=== PATIENT | female | born 1940 | race Two or more races ===

== ENCOUNTER 2017-08-28 16:26 | Emergency (ER) | payer MEDICARE, MEDICAID ==
[~2017-08-28] VITALS: Ht 154.9 cm; Wt 59.0 kg
[2017-08-28] MEDS ORDERED: KLONOPIN0.5 MG ORAL (16:35)
[2017-08-28] MEDS ORDERED: FIORICET1 EA ORAL (16:35)
[2017-08-28] MEDS ORDERED: GABAPENTIN100 MG ORAL (16:35)
[2017-08-28] MEDS ORDERED: SENNA8.6 M2 PO (16:35)
[2017-08-28] MEDS ORDERED: REMERON30 MG ORAL (16:35)
[2017-08-28] MEDS ORDERED: DEPAKOTE ER500 MG ORAL (16:35)
[2017-08-28] MEDS ORDERED: ASPIR 8181 MG ORAL (16:35)
[2017-08-28] MEDS ORDERED: TEMAZEPAM30 MG ORAL (16:35)
[2017-08-28] MEDS ORDERED: DILANTIN100 MG ORAL (16:35)
[2017-08-28] MEDS ORDERED: NITROGLYCERIN0.4 MG SL (16:35)
[2017-08-28] MEDS ORDERED: SYNTHROID125 MCG ORAL (16:35)
[2017-08-28 16:56] LABS: BASOPHILS % (AUTO) 1.7 % (0.0-2.0); EOSINOPHILS % (AUTO) 0.5 % (0.0-3.0); HEMATOCRIT 47.6 % (37.0-47.0); HEMOGLOBIN 15.7 G/DL (12.0-16.0); LYMPHOCYTES % (AUTO) 28.1 % (20.0-45.0); MEAN CORPUSCULAR VOLUME 96 FL (80-99); MONOCYTES % (AUTO) 6.6 % (1.0-10.0); NEUTROPHILS % (AUTO) 63.1 % (45.0-75.0); PLATELET COUNT 190 K/UL (150-450); RED BLOOD COUNT 4.95 M/UL (4.20-5.40); RED CELL DISTRIBUTION WIDTH 13.1 % (11.6-14.8); WHITE BLOOD COUNT 6.5 K/UL (4.8-10.8)
[2017-08-28 17:07] LABS: ANION GAP 6 mmol/L (5-15); BLOOD UREA NITROGEN 15 mg/dL (7-18); CALCIUM 8.7 MG/DL (8.5-10.1); CARBON DIOXIDE 32 MMOL/L (21-32); CHLORIDE 105 MMOL/L (98-107); CREATININE 0.8 MG/DL (0.55-1.30); POTASSIUM 4.1 MMOL/L (3.5-5.1); SODIUM 143 MMOL/L (136-145)
[2017-08-28 17:30] LABS: ALANINE AMINOTRANSFERASE 19 U/L (12-78); ALBUMIN 3.7 G/DL (3.4-5.0); ALBUMIN/GLOBULIN RATIO 1.2 (1.0-2.7); ALKALINE PHOSPHATASE 132 U/L (46-116); ASPARTATE AMINO TRANSFERASE 13 U/L (15-37); BILIRUBIN,TOTAL 0.2 MG/DL (0.2-1.0); CKMB 1.8 NG/ML (0.0-3.6); CREATINE KINASE 66 U/L (26-308)
[2017-08-28] MEDS ORDERED: BACITRACIN15 GM TOPIC (17:47)
[2017-08-28] MEDS ORDERED: KEFLEX500 MG ORAL (17:47)
[2017-08-28] MEDS ORDERED: ACETAMINOPHEN-1 EAC1 ORAL (17:47)
[2017-08-28 18:20] VITALS: BP 140/64
--- NOTE | 2017-08-28 23:03 | Emergency Room Report ---
History of Present Illness General Chief Complaint: Chest Pain Source: Patient Present Illness HPI 77-year-old female presents to ED for evaluation. Patient brought in by EMS complaining of chest pain. Midsternal, sharp, 7/10 nonradiating. Times one week. Patient also notes rash to her chest times one week. Denies any shortness of breath. Denies any fevers chills or cough. No other aggravating relieving factors. Denies any other associated symptoms Allergies: Coded Allergies: No Known Allergies (Unverified , 08/28/17) Patient History Past Medical History: seizures Past Surgical History: none Pertinent Family History: none Social History: Denies: smoking, alcohol use, drug use Last Menstrual Period: Post Now: No Immunizations: UTD Reviewed Nursing Documentation: PMH: Agreed, PSxH: Agreed Nursing Documentation-PMH Hx Seizures: Yes Review of Systems All Other Systems: negative except mentioned in HPI Physical Exam Vital Signs Date Time Temp Pulse Resp B/P (MAP) Pulse Ox O2 Delivery O2 Flow Rate FiO2 08/28/17 16:23 76 16 142/64 98 Room Air Sp02 EP Interpretation: reviewed, normal General Appearance: no apparent distress, alert, GCS 15, non-toxic Head: normocephalic, atraumatic Eyes: bilateral eye normal inspection, bilateral eye PERRL ENT: hearing grossly normal, normal pharynx, no angioedema, normal voice Neck: full range of motion, supple/symm/no masses Respiratory: lungs clear, normal breath sounds, speaking full sentences Cardiovascular #1: regular rate, rhythm, no edema Cardiovascular #2: 2+ carotid (R), 2+ carotid (L), 2+ radial (R), 2+ radial (L) , 2+ dorsalis pedis (R), 2+ dorsalis pedis (L) Gastrointestinal: normal bowel sounds, non tender, soft, non-distended, no guarding, no rebound Rectal: deferred Genitourinary: normal inspection, no CVA tenderness Musculoskeletal: back normal, gait/station normal, normal range of motion, non- tender Neurologic: alert, oriented x3, responsive, motor strength/tone normal, sensory intact, speech normal Psychiatric: judgement/insight normal, memory normal, mood/affect normal, no suicidal/homicidal ideation Reflexes: 3+ bicep (R), 3+ bicep (L), 3+ tricep (R), 3+ tricep (L), 3+ knee (R) , 3+ knee (L) Skin: normal color, warm/dry, well hydrated, rash - 2x2cm rash to sternal region. erythematous Lymphatic: no adenopathy Medical Decision Making Diagnostic Impression: Primary Impression: Rash Additional Impression: Chest pain Qualified Codes: R07.9 - Chest pain, unspecified ER Course Hospital Course 77-year-old F presents ED complaining of chest pain Differential diagnoses include: Rib fracture, FL/unstable angina, contusion, muscle strain Clinical course Patient placed on stretcher. After initial history physical exam reveals a elderly female in no acute distress. There is a rash to the sternal region. Erythematous. With raising edges. TTP. This is the pain that the patient is referring to I ordered labs, EKG, chest x-ray. labs reviewed- all electrolytes normal, troponins negative, no leukocytosis, hemoglobin/hematocrit stable EKG - NSR, no acute ischemic changes interpreted by me Chest x-ray-no cardiomegaly, no rib fracture, no pneumothorax, no acute process Status findings the patient. Will discharge with medications for the rash I. I feel this is a highly complex case requiring extensive working including EKG/Rhythm strip, Xray/CT/US, Blood/urine lab work, repeat exams while in ED, and administration of strong opiates/narcotics for pain control, admission to hospital or close patient follow up. Diagnosis - rash, chest pain Stable and discharged to home with Keflex, Bacitracin. Instructed to followup with PMD. Return to ED if symptoms recur or worsen Labs Test 08/28/17 16:39 White Blood Count 6.5 K/UL (4.8-10.8) Red Blood Count 4.95 M/UL (4.20-5.40) Hemoglobin 15.7 G/DL (12.0-16.0) Hematocrit 47.6 % (37.0-47.0) Mean Corpuscular Volume 96 FL (80-99) Mean Corpuscular Hemoglobin 31.7 PG (27.0-31.0) Mean Corpuscular Hemoglobin Concent 32.9 G/DL (32.0-36.0) Red Cell Distribution Width 13.1 % (11.6-14.8) Platelet Count 190 K/UL (150-450) Mean Platelet Volume 9.0 FL (6.5-10.1) Neutrophils (%) (Auto) 63.1 % (45.0-75.0) Lymphocytes (%) (Auto) 28.1 % (20.0-45.0) Monocytes (%) (Auto) 6.6 % (1.0-10.0) Eosinophils (%) (Auto) 0.5 % (0.0-3.0) Basophils (%) (Auto) 1.7 % (0.0-2.0) Sodium Level 143 MMOL/L (136-145) Potassium Level 4.1 MMOL/L (3.5-5.1) Chloride Level 105 MMOL/L (98-107) Carbon Dioxide Level 32 MMOL/L (21-32) Anion Gap 6 mmol/L (5-15) Blood Urea Nitrogen 15 mg/dL (7-18) Creatinine 0.8 MG/DL (0.55-1.30) Estimat Glomerular Filtration Rate mL/min (>60) Glucose Level 86 MG/DL (74-106) Calcium Level 8.7 MG/DL (8.5-10.1) Total Bilirubin 0.2 MG/DL (0.2-1.0) Aspartate Amino Transf (AST/SGOT) 13 U/L (15-37) Alanine Aminotransferase (ALT/SGPT) 19 U/L (12-78) Alkaline Phosphatase 132 U/L (46-116) Total Creatine Kinase 66 U/L (26-308) Creatine Kinase MB 1.8 NG/ML (0.0-3.6) Creatine Kinase MB Relative Index 2.7 Troponin I 0.000 ng/mL (0.000-0.056) Pro-B-Type Natriuretic Peptide 60 pg/mL (0-125) Total Protein 6.9 G/DL (6.4-8.2) Albumin 3.7 G/DL (3.4-5.0) Globulin 3.2 g/dL Albumin/Globulin Ratio 1.2 (1.0-2.7) EKG Diagnostic Results Rate: normal Rhythm: NSR ST Segments: no acute changes ASA given to the pt in ED: No Rhythm Strip Diag. Results EP Interpretation: yes Rhythm: NSR, no PVC's, no ectopy Chest X-Ray Diagnostic Results Chest X-Ray Diagnostic Results : Chest X-Ray Ordered: Yes # of Views/Limited/Complete: 1 View Indication: Chest Pain EP Interpretation: Yes Interpretation: no consolidation, no effusion, no pneumothorax, no acute cardiopulmonary disease Impression: No acute disease Electronically Signed by: Electronically signed by Perfecto Huff MD Last Vital Signs Date Time Temp Pulse Resp B/P (MAP) Pulse Ox O2 Delivery O2 Flow Rate FiO2 08/28/17 18:20 85 16 140/64 98 Room Air Status: improved Disposition: HOME, SELF-CARE Condition: Stable Scripts Acetaminophen With Codeine (T#3) (TYLENOL #3 TAB*) Y Tab 1 TAB ORAL Q8H Y for For Pain, #20 TAB Prov: PERFECTO HUFF M.D. 08/28/17 Bacitracin (Bacitracin) 28.4 Gm Oint...g. 1 APPLIC TOPIC THREE TIMES A DAY, #28.4 GM Prov: PERFECTO HUFF M.D. 08/28/17 Cephalexin* (KEFLEX*) 500 Mg Capsule 500 MG ORAL Q6H, #28 CAP 0 Refills Prov: PERFECTO HUFF M.D. 08/28/17 Referrals: NOT CHOSEN ROHINI/,REFERRING (PCP) Patient Instructions: Rash, [id number] PERFECTO HUFF M.D. Aug 28, 2017 23:03
--- NOTE | 2017-08-29 08:25 | Diagnostic Imaging Report ---
Indication: Chest pain Technique: One view of the chest Comparison: none Findings: There is a large retrocardiac hiatal hernia. Lungs and pleural spaces are clear. Surgical clips are seen in the right supraclavicular fossa Impression: No acute process Hiatal hernia
--- NOTE | 2017-08-30 11:36 | Cardiology Report ---
APPROVED REPORT EKG Measurement Heart [id number] Normal sinus rhythm Normal ECG
== END 2017-08-28 18:24 | disposition home or self-care (01) ==
LOC: EDBD 16:26 → EMR 17:00
DX: R21 Rash and other nonspecific skin eruption (principal); R07.89 Other chest pain; K44.9 Diaphragmatic hernia without obstruction or gangrene; Z86.69 Personal history of other diseases of the nervous system and sense organs
CPT/HCPCS: 36415; 71045; 80053; 82550; 82553; 83880; 84484; 85025; 93005; 99284